=== PATIENT | female | born 1985 ===

== ENCOUNTER 2022-10-29 09:56 | Day surgery (SDC) | payer OTHER ==
[~2022-10-29 09:56] MED LIST: DOXYCYCLINE HY100 MG PO; TYLENOL-CODEINE1 TAB PO
[2022-10-29] MEDS ORDERED: NAPR500T14 PO (14:11)
[2022-10-29] MEDS ORDERED: MORGIDOX100 MG PO (14:11)
== END 2022-10-29 19:40 | disposition home or self-care (01) ==
LOC: CIR.AMB 09:56
PROVIDERS: ATTEND Obstetrics & Gynecology
DX: N92.0 Excessive and frequent menstruation with regular cycle (principal); N84.0 Polyp of corpus uteri; D25.0 Submucous leiomyoma of uterus; Z88.6 Allergy status to analgesic agent; Z91.013 Allergy to seafood